=== PATIENT | male | born 1980 | race Caucasian/White ===

== ENCOUNTER 2020-09-08 15:12 | Emergency (ER) | payer BC ==
[~2020-09-08] VITALS: Ht 180.3 cm; Wt 81.6 kg
[~2020-09-08 15:12] MED LIST: ACITRETIN PO; [UNRECOGNIZED DRUG - OTHER]
[2020-09-08 15:25] VITALS: BP 118/68
--- NOTE | 2020-09-08 18:22 | NUR ---
CALLED [facility] TO HAVE AN IMAGE READ. THEY WILL FAX RESULTS
--- NOTE | 2020-09-08 18:34 | NUR ---
Patient discharged to home in stable condition. Written and verbal after care instructions given. Patient verbalizes understanding of instruction. Pt ambulatory with a steady gait
== END 2020-09-08 18:51 | disposition home or self-care (01) ==
LOC: ER 15:17
DX: S60.222A Contusion of left hand, initial encounter (principal); Z88.6 Allergy status to analgesic agent; Z60.2 Problems related to living alone; V49.49XA Driver injured in collision with other motor vehicles in traffic accident, initial encounter; Y93.89 Activity, other specified; Y92.488 Other paved roadways as the place of occurrence of the external cause; Y99.8 Other external cause status
CPT/HCPCS: 73130-TC